=== PATIENT | female | born 1945 | race Caucasian/White ===

== ENCOUNTER 2020-11-04 21:31 | Emergency (ER) | payer OTHER ==
[~2020-11-04 21:31] MED LIST: B-125000 MCG SL; CEFPODOXIME PR200 MG PO; CLARITIN10 MG PO; CORGARD40 MG PO; CYMBALTA 30 MG30 MG PO; DITROPAN 5 MG TA5 MG PO; DYMISTA NASAL S23 GM; ELIQUIS2.5 MG PO; FLAGYL500 MG PO; FLOVENT DISKUS50 MCG INH; FOSAMAX70 MG PO; K-DUR TAB 10 M10 MEQ PO; LEVOCETIRIZINE D5 MG PO; LOSARTAN-HCTZ1 EAC2 PO; MACRODANTIN50 MG PO; MESTINON60 MG PO; OMEPRAZOLE20 MG PO; PANTOPRAZOLE SO40 MG PO; PRADAXA 150 MG150 MG PO; PROTONIX 20 MG20 MG PO; TAMBOCOR 100 M100 MG PO; ZOFRAN4 MG PO; ZOLOFT50 MG PO
[2020-11-04 23:13] LABS: HEMOGLOBIN 15.9 gm/dl (12.3-15.3)
== END 2020-11-04 23:47 | disposition home or self-care (01) ==
LOC: ER1 21:31
PROVIDERS: Physician Assistant
DX: R04.0 Epistaxis (principal); I11.9 Hypertensive heart disease without heart failure; I48.91 Unspecified atrial fibrillation; Z90.710 Acquired absence of both cervix and uterus; Z79.01 Long term (current) use of anticoagulants; Z88.2 Allergy status to sulfonamides; Z88.8 Allergy status to other drugs, medicaments and biological substances
CPT/HCPCS: 30901; 85014; 85018; 85610; 85730; 99283

== ENCOUNTER → 2021-04-20 | Outpatient (CLI) | payer OTHER | LOC: EXRD 01-24 13:00 | DX: Z78.0 Asymptomatic menopausal state (principal); M81.0 Age-related osteoporosis without current pathological fracture | CPT/HCPCS: 77080 ==

== ENCOUNTER → 2022-03-10 | Outpatient (CLI) | payer OTHER | LOC: CT 11:00 | DX: Z98.84 Bariatric surgery status (principal); K76.0 Fatty (change of) liver, not elsewhere classified; K57.90 Diverticulosis of intestine, part unspecified, without perforation or abscess without bleeding | CPT/HCPCS: Q9967 ==